=== PATIENT | female | born 1960 | race Caucasian/White ===

== ENCOUNTER 2021-04-04 04:22 | Emergency (ER) | payer OTHER, SELFPAY ==
[2021-04-04] VITALS (7 sets, daily range): BP systolic 145–188; BP diastolic 76–98; PULSE 45–55; RESP 13–21; TEMP 36.1; O2SAT 96–100
--- NOTE | ~2021-04-04 | XR_ITS ---
EXAMINATION: XR chest 2V EXAM DATE: 04/04/2021 05:06 INDICATION: Chest discomfort. TECHNIQUE: Frontal and lateral projections of the chest obtained and reviewed. Comparison is made to prior examination from 10/05/2013. FINDINGS: The lungs are clear. There are no pleural effusions. The cardiomediastinal silhouette is within normal limits. There is no pneumothorax suspected. The bones and soft tissues are unremarkab le. IMPRESSION: No acute cardiopulmonary findings. Reviewed, dictated and finalized at location A.
--- NOTE | 2021-04-04 04:42 | ECG_ITS ---
Measurements Intervals [place] Rate: 53 P: 42 [place]: 169 QRS: -44 QRSD: 157 T: 31 QT: 463 QTc: 438 Interpretive Statements SINUS BRADYCARDIA LEFT AXIS DEVIATION RIGHT BUNDLE BRANCH BLOCK CANNOT RULE OUT SEPTAL INFARCT, AGE INDETERMINATE MINIMAL Q WAVES- HIGH LATERAL LEADS BASELINE ARTIFACT- II, III, AVF, V1, V3-V6 ABNORMAL ECG Electronically Signed On 04-04-2021 7:50:52 CDT by Desmond Rodriguez D.O.
[2021-04-04 05:16] LABS: Basophils Percent Auto 0.5 % (0.2-1.2); Eosinophils Absolute Auto 0.1 K/mm3 (0-0.3); Eosinophils Percent Auto 1.5 % (0-4.4); Hematocrit 39.8 % (37.0-47.0); Hemoglobin 12.9 g/dL (12.0-15.0); Immature Granulocyte Absolute 0.02 K/mm3 (0.00-0.031); Immature Granulocyte Percent A 0.3 % (0-0.5); Lymphocytes Absolute Auto 1.59 K/mm3 (0.9-3.2); Lymphocytes Percent Auto 26.1 % (18.3-44.2); Mean Corpuscular HGB Conc 32.4 g/dl (32-36); Mean Corpuscular Hemoglobin 29.3 pg (26-34); Mean Corpuscular Volume 90.2 fl (80-100); Mean Platelet Volume 11.1 fl (7.4-10.4); Monocytes Absolute Auto 0.5 K/mm3 (0.1-0.6); Monocytes Percent Auto 8.5 % (2.6-8.5); Neutrophils Absolute Auto 3.8 K/mm3 (1.3-6.7); Neutrophils Percent Auto 63.1 % (45.5-73.1); Platelet Count Result 258 k/mm3 (150-375); Red Blood Count 4.41 M/mm3 (4.2-5.4); Red Cell Distribution Width 12.5 % (11.5-14.5); White Blood Count 6.1 K/mm3 (4.5-10.0)
[2021-04-04] MEDS: ASPIRIN 81 MG CHEWABLE TABLET 324 MG PO (05:20)
[2021-04-04 05:30] LABS: INR 0.8; Prothrombin Time 11.3 Seconds (11.1-14.7)
[2021-04-04 05:31] LABS: Partial Thromboplastin Time 25.7 SECONDS (22.3-36.8)
[2021-04-04 05:37] LABS: Anion Gap 10 mmol/L (8-16); Blood Urea Nitrogen 22 mg/dL (7-17); Calcium 9.3 mg/dL (8.4-10.2); Carbon Dioxide 23 mmol/L (22-30); Chloride 108 mmol/L (98-107); Estimated CRCL calculation 66 ml/min; Estimated Glomerular Filt Rate > 60; Glucose 114 mg/dL (65-110); Potassium 3.9 mmol/L (3.4-5.0); Sodium 141 mmol/L (137-145)
[2021-04-04 05:48] LABS: Troponin I < 0.012 ng/mL (0.000-0.034)
--- NOTE | 2021-04-04 06:16 | ED.GENADULT ---
HPI - General Adult General Chief complaint: Recheck/Abnormal Lab/Rx <Zhang Archibald MD - Last Filed: 04/04/21 06:42> Stated complaint: high bp <Zhang Archibald MD - Last Filed: 04/04/21 06:42> Time Seen by Provider: 04/04/21 05:18 <Zhang Archibald MD - Last Filed: 04/04/21 06:42> History of Present Illness HPI narrative: Patient is a 61-year-old female who presents the emergency department with chief complaint of elevated blood pressure. The patient states that she checked her blood pressure and it was running in the 180s she also felt a little bit of dizziness some tingling in her chest the patient states that she has not seen a primary care physician but had some earlier testing this week. The patient states that she feels a little better since she been in the emergency department and noticed that her blood pressure has come and trended down since she is arrived here the patient states that she had no nausea no vomiting denies any focal neurological deficit. <Zhang Archibald MD - Last Filed: 04/04/21 06:42> Related Data Allergies/adverse reactions: Allergies Allergy/AdvReac Type Severity Reaction Status Date / Time Penicillins Allergy Unknown RASH Verified 04/04/21 04:49 <Zhang Archibald MD - Last Filed: 04/04/21 06:42> Review of Systems Review of Systems: A 10 system review of systems was completed on the patient and is negative except for what is stated in the HPI. Nursing and ancillary documentation was reviewed. <Zhang Archibald MD - Last Filed: 04/04/21 06:42> [facility] Family History Family History: Family History Grandparent Diabetes mellitus Family history of lung cancer Family history of malignant neoplasm of breast Father Cerebrovascular accident <Zhang Archibald MD - Last Filed: 04/04/21 06:42> Social History Social History: Social History Smoking status: Never smoker <Zhang Archibald MD - Last Filed: 04/04/21 06:42> Exam Narrative: GENERAL: Well-appearing, well-nourished, and in no acute distress. HEAD: Normocephalic, atraumatic. EYES: PERRLA and EOMI. ENT: Nares clear, no rhinorrhea or epistaxis. Mucous membranes moist. NECK: Supple. CHEST: Clear to auscultation. No respiratory distress. HEART: Regular rate and rhythm. No murmur heard. Normal peripheral pulses. ABDOMEN: Soft, nontender, nondistended, normal active bowel sounds. EXTREMITIES: Normal range of motion. No edema. SKIN: Warm, dry, no rash. NEURO: No focal deficits. Alert and oriented x3. PSYCH: Normal mood and affect. <Zhang Archibald MD - Last Filed: 04/04/21 06:42> Course Reevaluation(s) Reevaluation #1: Currently patient is asymptomatic, agreed with the plan to start medication for hypertension and to follow-up with her family physician as soon as possible for further evaluation. Patient is telling me that she had Covid exposure 1 week ago and feels scratchy and congested throat and sinuses and would like to get the Covid tested prior to discharge. Patient also reported having chills yesterday <Carlos Eduardo Murillo MD - Last Filed: 04/04/21 08:54> Date: 04/04/21 <Carlos Eduardo Murillo MD - Last Filed: 04/04/21 08:54> Time: 08:47 <Carlos Eduardo Murillo MD - Last Filed: 04/04/21 08:54> Vital Signs Vital signs: Vital Signs Temperature 36.1 C L 04/04/21 04:32 Pulse Rate 55 L 04/04/21 04:32 Respiratory Rate 17 04/04/21 04:32 Blood Pressure 182/98 H 04/04/21 04:32 Pulse Oximetry 100 04/04/21 04:32 Temperature 36.1 C L 04/04/21 04:32 Pulse Rate 54 L 04/04/21 08:31 Respiratory Rate 19 04/04/21 08:31 Blood Pressure 167/82 H 04/04/21 08:31 Pulse Oximetry 100 04/04/21 08:31 <Zhang Archibald MD - Last Filed: 04/04/21 06:42> Vital Signs
[2021-04-04 08:03] LABS: Troponin I < 0.012 ng/mL (0.000-0.034)
[2021-04-05 18:39] LABS: SARS-CoV-2 RNA PCR Negative
== END 2021-04-04 09:10 | disposition home or self-care (01) ==
PROVIDERS: Emergency Medicine; Emergency Provider Emergency Medicine; PCP Internal Medicine
DX: R07.89 Other chest pain (principal); I10 Essential (primary) hypertension; Z20.822 Contact with and (suspected) exposure to COVID-19
CPT/HCPCS: 36415; 71046; 80048; 84484; 85025; 85610; 85730; 93005; 99284; A9270; C9803; U0003; U0005

== ENCOUNTER 2021-06-09 15:02 | Emergency (ER) | payer OTHER, SELFPAY ==
--- NOTE | ~2021-06-09 | XR_ITS ---
EXAMINATION: XR chest 2V EXAM DATE: 06/09/2021 15:49 INDICATION: Productive cough. TECHNIQUE: Frontal and lateral projections of the chest obtained and reviewed. Comparison is made to prior examination from 04/04/2021. FINDINGS: The lungs are clear. There are no pleural effusions. The cardiomediastinal silhouette is within normal limits. There is no pneumothorax suspected. Moderate-sized bilateral endplate osteoph ytes at mid thoracic levels. IMPRESSION: No acute cardiopulmonary findings. Reviewed, dictated and finalized at location B. & PRESIDENT
[2021-06-09 15:15] VITALS: BP 156/72; PULSE 57; RESP 16; TEMP 36.4; O2SAT 98
[2021-06-09 15:17] VITALS: BP 156/72; PULSE 57; RESP 16; TEMP 36.4; O2SAT 98
--- NOTE | 2021-06-09 15:20 | ED.URI ---
HPI - URI/Sore Throat General Chief Complaint: Upper Respiratory Infection Stated Complaint: sinus infection Time Seen by Provider: 06/09/21 15:20 Source: patient Mode of arrival: ambulatory Limitations: no limitations History of Present Illness HPI Narrative: Makenzie Ordoñez is a 61 yo female with a PMH of minimally treated hypertension [facility] of sinus congestion cough some cough red throat and general sinus congestion for last 8 to 10 days Related Data Allergies Allergy/AdvReac Type Severity Reaction Status Date / Time Penicillins Allergy Unknown RASH Verified 06/09/21 15:15 Review of Systems Review of Systems: CONSTITUTIONAL: Denies fever, chills, sweats. EYES: Denies visual changes, redness, discharge. ENT: Denies rhinorrhea, has congestion, has sore throat, otalgia. CARDIOVASCULAR: Denies chest pain, palpitations, edema. RESPIRATORY: Denies dyspnea, wheezing, some cough GASTROINTESTINAL: Denies abdominal pain, nausea, vomiting, diarrhea. GENITOURINARY: Denies dysuria, hematuria, abnormal discharge SKIN: Denies rash or itching. NEUROLOGIC: Denies numbness, or focal weakness. PSYCHIATRIC: Denies anxiety or depression. [facility] Past Medical History Medical History HTN (hypertension) Family History Family History Grandparent Diabetes mellitus Family history of lung cancer Family history of malignant neoplasm of breast Father Cerebrovascular accident Social History Social History (Updated 06/09/21 @ 15:33 by Alona Geller CNP) Smoking status: Never smoker Alcohol intake: current Comments At time of signature, I agree with nursing past medical, surgical, social and family history. There is no relevant family history pertinent to the presenting complaint. Patient diagnosed with hypertension but is not taking medication regularly Exam Narrative: GENERAL: This is a well-nourished, well-developed patient, in mild distress. HEAD: normocephalic, atraumatic. EYES: Sclera clear/white. Vision is grossly intact. EARS: External ears normal, auditory canals erythema and without drainage, TMs normal without perforation. Hearing grossly intact. NOSE: External nose normal with nasal discharge, nares without redness, has rhinorrhea. THROAT: Mucous membranes moist, posterior pharynx erythema with no exudate NECK: Neck supple, non-tender CARDIOVASCULAR: Regular rate and rhythm without murmurs, gallops, or rubs. RESPIRATORY: Clear to auscultation. Breath sounds equal bilaterally except for left lower lobe wheezing. GASTROINTESTINAL: Abdomen soft, non-tender, SKIN: warm, intact with no suspicious lesions or rash, good texture and turgor. NEURO: awake, alert, and oriented to person, place and time. There were no obvious focal neurologic abnormalities. Steady gait EXTREMITIES: Normal range of motion. BACK: Nontender without deformity Course Course Emergency Course: Patient comes to [facility] with 8 days of sinus symptoms and sore throat mild cough Chest x-ray shows no acute cardiopulmonary process Started on prednisone, albuterol, Tessalon Perles, zyrtec Vital Signs Vital signs: Vital Signs Temperature 97.5 F L 06/09/21 15:15 Pulse Rate 57 L 06/09/21 15:15 Respiratory Rate 16 06/09/21 15:15 Blood Pressure 156/72 H 06/09/21 15:15 Pulse Oximetry 98 06/09/21 15:15 Temperature 97.5 F L 06/09/21 15:17 Pulse Rate 57 L 06/09/21 15:17 Respiratory Rate 16 06/09/21 15:17 Blood Pressure 156/72 H 06/09/21 15:17 Pulse Oximetry 98 06/09/21 15:17 MDM - URI/Sore Throat Differential Diagnosis Differential diagnosis: Likely upper respiratory infection, sinusitis, viral infection, bronchitis, pharyngitis and other Critical Care Time Critical Care Time Critical Care Time: No Discharge Plan Discharge Clinical Impression: Sinusitis Qualifiers
== END 2021-06-09 16:09 | disposition home or self-care (01) ==
PROVIDERS: Emergency Provider Nurse Practitioner; PCP Internal Medicine
DX: J01.10 Acute frontal sinusitis, unspecified (principal); I10 Essential (primary) hypertension
CPT/HCPCS: 71046; 99213; G0463

== ENCOUNTER 2022-03-03 14:17 | Emergency (ER) | payer OTHER, SELFPAY ==
--- NOTE | 2022-03-03 14:19 | ED.EYEPROB ---
HPI - Eye Problem General Chief complaint: Eye Problems Stated complaint: Eye Pain Time Seen by Provider: 03/03/22 14:18 Source: patient Mode of arrival: ambulatory Limitations: no limitations History of Present Illness HPI Narrative: Ms. Brown is a 61-year-old female patient presenting to the clinic today with complaints of left eye pain and drainage x2 to 3 days. She reports she has lost her voice and had nasal congestion and postnasal drip for almost 1 week now. She denies any sinus pressure. She denies any fever or chills. She denies any known exposure to anyone with COVID, flu, or strep. Related Data Home Medications Medication Instructions Recorded Confirmed losartan 50 mg-hydrochlorothiazide 1 tablet PO DAILY 03/03/22 03/03/22 12.5 mg tablet Allergies Allergy/AdvReac Type Severity Reaction Status Date / Time Penicillins Allergy Unknown RASH Verified 03/03/22 14:19 Review of Systems Review of Systems: Pertinent positives per HPI. Patient denies any fever, chills, rash, headache, visual changes, dizziness, cough, runny nose, sore throat, shortness of breath, chest pain, palpitations, nausea, vomiting, diarrhea, constipation, abdominal pain, or any urinary issues. [facility] Past Medical History Medical History HTN (hypertension) Family History Family History Grandparent Diabetes mellitus Family history of lung cancer Family history of malignant neoplasm of breast Father Cerebrovascular accident Social History Social History Smoking status: Never smoker Alcohol intake: current Comments At the time of my signature, I reviewed and agree with the nursing past medical, surgical, social, and family history. There is no relevant family history pertinent to the patient complaint. Exam Narrative: General: Well-developed, overweight, in no apparent distress Head: Normocephalic, atraumatic Eyes: Pupils equally round and reactive to light bilaterally, EOM intact, right sclera and conjunctive clear, left sclera and conjunctive a injected with mild lid swelling and yellow mucopurulent discharge coming from the outer canthus, left lids normal Ears: TMs intact and clear, ear canals clear, no drainage, grossly hearing normal. Nose: Nares patent, clear nasal discharge, moderate inflammation, no sinus tenderness. Mouth: Oropharynx without lesions or masses, good dentition, MMM. Postnasal drip Neck: Supple, trachea midline, no enlargement of anterior or posterior cervical nodes, no thyroid masses or goiter palpable. Cardio: Regular rate and rhythm, s1 and s2 normal, no murmur appreciated. Resp: Clear to auscultation bilaterally anteriorly and posteriorly, no rhonchi, rales, wheezing or rubs Course Course Emergency Course: Portions of this record may have been created with voice recognition software. Level of Care: Express Care Visit Vital Signs Vital signs: Vital signs reviewed MDM - Eye Problem MDM Narrative Medical decision making narrative: At the time of visit patient is resting comfortably on the exam table. I suspect the patient has left acute conjunctivitis with viral upper respiratory infection and postnasal drip TobraDex prescription sent to the pharmacy and supportive measures were discussed with the patient for symptomatic treatment. Patient voiced understanding of discharge instructions and agrees to treatment plan Differential Diagnosis Differential diagnosis: Likely corneal abrasion, conjunctivitis and other (Upper respiratory infection, postnasal drip, sinusitis ) Discharge Plan Discharge Clinical Impression: Acute upper respiratory infection, PND (post-nasal drip) Acute conjunctivitis, left eye Qualifiers: Acute conjunctivitis type: unspecified Qualified Code(s): H10.32 - Unspecified acute
[2022-03-03 14:29] VITALS: BP 127/78; PULSE 63; RESP 18; TEMP 36.7; O2SAT 100
== END 2022-03-03 14:40 | disposition home or self-care (01) ==
PROVIDERS: Emergency Provider Nurse Practitioner Family; PCP Internal Medicine
DX: H10.32 Unspecified acute conjunctivitis, left eye (principal); J06.9 Acute upper respiratory infection, unspecified; R09.82 Postnasal drip; I10 Essential (primary) hypertension
CPT/HCPCS: 99213; G0463

== ENCOUNTER 2022-05-29 15:38 | Emergency (ER) | payer OTHER, SELFPAY ==
--- NOTE | ~2022-05-29 | XR_ITS ---
EXAM: XR ankle LT min 3V, XR foot LT min 3V DATE: 05/29/2022 16:01 (accession [id number]), 05/29/2022 16:02 (accession [id number]) HISTORY: TWISTING INJURY, BILATERAL MALLEOLUS SWELLING/PAIN . COMPARISON: None available. FINDINGS: Normal mineralization. No fracture or dislocation. No lytic or blastic lesion. Moderate de generative change at the tibiotalar joint and multiple midfoot joints. Old medial malleolus fracture fragment/ossified body. Prominent os trigonum. Achilles and plantar enthesopathy. Dorsal capsular and talonavicular capsular enthesopathy versus old fracture fragments. No erosion or periosteal change. Marked soft tissue swelling about the ankle. IMPRESSION: No acute osseous finding in the left ankle or foot. Reviewed, dictated and finalized at [facility] K. [employer] IMPRESSION: No acute osseous finding in the left ankle or foot.
[2022-05-29 15:43] VITALS: BP 137/67; PULSE 74; RESP 18; TEMP 36.6; O2SAT 99
[2022-05-29 18:17] VITALS: BP 135/71; PULSE 61; RESP 17; TEMP 37.2; O2SAT 100
--- NOTE | 2022-05-29 19:13 | ED.LOWEXIN ---
HPI - Extremity Injury (Lower) General Chief Complaint: Extremity Injury, Lower Stated Complaint: fell and twisted left ankle Time Seen by Provider: 05/29/22 18:41 History of Present Illness HPI Narrative: Patient is a 62-year-old female presenting with an ankle injury. Patient states that she was at work last night and she slipped as she was going down some stairs. States that she fell down 3 of them and twisted her left ankle. She did not strike her head. States that since that time she has had pain in her left ankle as well as significant swelling. States it is difficult to bear weight. She denies right ankle pain or injury. She denies further injuries. She denies chest pain, lightheadedness, shortness of breath, abdominal pain, vomiting. Related Data Home Medications Medication Instructions Recorded Confirmed losartan 50 mg-hydrochlorothiazide 1 tablet PO DAILY 03/03/22 03/03/22 12.5 mg tablet Allergies Allergy/AdvReac Type Severity Reaction Status Date / Time Penicillins Allergy Unknown RASH Verified 03/03/22 14:19 Review of Systems Review of Systems: All systems reviewed & are unremarkable except as noted in HPI and below PMFSH Past Medical History Medical History HTN (hypertension) Family History Family History Grandparent Diabetes mellitus Family history of lung cancer Family history of malignant neoplasm of breast Father Cerebrovascular accident Social History Social History Smoking status: Never smoker Alcohol intake: current Exam Narrative: GENERAL: Well-appearing, well-nourished, and in no acute distress. HEAD: Normocephalic, atraumatic. EYES: PERRLA and EOMI. ENT: Nares clear, no rhinorrhea or epistaxis. Mucous membranes moist. NECK: Supple. CHEST: No respiratory distress. HEART: Regular rate and rhythm. ABDOMEN: Soft, nondistended EXTREMITIES: left ankle with edema and tenderness over lateral malleolus, 2+ DP/PT pulses, brisk cap refill, ROM limited d/t pain; R ankle without abnormalities. SKIN: Warm, dry, no rash. NEURO: No focal deficits. Alert and oriented x3. PSYCH: Normal mood and affect. Course Vital Signs Vital signs: Vital Signs Temperature 97.9 F 05/29/22 15:43 Pulse Rate 74 05/29/22 15:43 Respiratory Rate 18 05/29/22 15:43 Blood Pressure 137/67 05/29/22 15:43 Pulse Oximetry 99 05/29/22 15:43 Temperature 98.9 F 05/29/22 18:17 Pulse Rate 61 05/29/22 18:17 Respiratory Rate 17 05/29/22 18:17 Blood Pressure 135/71 05/29/22 18:17 Pulse Oximetry 100 05/29/22 18:17 MDM - Extremity Injury (Lower) MDM Narrative Medical decision making narrative: Patient is a 62-year-old female presenting with a left ankle injury. Vitals within normal limits. Exam is remarkable for the above. She is neurovascularly intact. X-ray of the left foot and ankle were obtained which show no acute osseous abnormality. We will treat the patient with supportive care. Advised Aleve and Tylenol for pain control. Also recommended ice and elevation. Recommended follow-up with her PCP. We will also provide the number for orthopedics if her pain continues. Appropriate return precautions were given. Patient voiced understanding and is agreeable with plan. Discharged in stable condition. Critical Care Time Critical Care Time Critical Care Time: No Discharge Plan Discharge Clinical Impression: Ankle sprain and strain Patient Disposition: Home, Self-Care Condition: Stable Instructions: Antibiotic Form, Ankle Sprain (ED) Additional Instructions: Please alternate between Tylenol and Aleve for pain control. Please take 500 mg to 1000 mg of Tylenol and then 4 hours later take 500 mg of Aleve and continue to alternate between the two. Please apply ice and keep your foot
[2022-05-29] MEDS: NAPROXEN 500 MG TABLET PO (19:36)
== END 2022-05-29 19:59 | disposition home or self-care (01) ==
PROVIDERS: Emergency Provider Emergency Medicine; PCP Internal Medicine
DX: S93.402A Sprain of unspecified ligament of left ankle, initial encounter (principal); S96.912A Strain of unspecified muscle and tendon at ankle and foot level, left foot, initial encounter; I10 Essential (primary) hypertension; W10.9XXA Fall (on) (from) unspecified stairs and steps, initial encounter; X50.9XXA Other and unspecified overexertion or strenuous movements or postures, initial encounter
CPT/HCPCS: 73610; 73630; 99283; A9270

== ENCOUNTER 2022-06-03 09:09 | Emergency (ER) | payer OTHER, SELFPAY ==
--- NOTE | 2022-06-03 09:11 | ED.LOWEXIN ---
HPI - Extremity Injury (Lower) General Chief Complaint: Extremity Injury, Lower Stated Complaint: left ankle pain Time Seen by Provider: 06/03/22 09:11 Source: patient Mode of arrival: ambulatory Limitations: no limitations History of Present Illness HPI Narrative: Ms. Brown is a 62-year-old female patient presenting to clinic today with complaints of left ankle pain x6 days. She slipped on a step that had some wet leaves on it and she twisted her ankle. She went to the ER and had x-rays completed of the foot and ankle and they were negative. Still having a lot of pain and swelling when walking. Is scheduled to go back to work on Monday but does not feel as though she can perform her job duties due to the pain of her left ankle Related Data Home Medications Medication Instructions Recorded Confirmed losartan 50 mg-hydrochlorothiazide 1 tablet PO DAILY 03/03/22 03/03/22 12.5 mg tablet Allergies Allergy/AdvReac Type Severity Reaction Status Date / Time Penicillins Allergy Unknown RASH Verified 03/03/22 14:19 Review of Systems Review of Systems: Pertinent positives per HPI. Patient denies any fever, chills, rash, headache, visual changes, dizziness, cough, runny nose, sore throat, shortness of breath, chest pain, palpitations, nausea, vomiting, diarrhea, constipation, abdominal pain, or any urinary issues. PMFSH Past Medical History Medical History HTN (hypertension) Family History Family History Grandparent Diabetes mellitus Family history of lung cancer Family history of malignant neoplasm of breast Father Cerebrovascular accident Social History Social History Smoking status: Never smoker Alcohol intake: current Comments At the time of my signature, I reviewed and agree with the nursing past medical, surgical, social, and family history. There is no relevant family history pertinent to the patient complaint. Exam Narrative: General: Well-developed, well nourished, in no apparent distress Head: Normocephalic, atraumatic. Cardio: Regular rate and rhythm, s1 and s2 normal, no murmur appreciated. Resp: Clear to auscultation bilaterally, no rhonchi, rales, wheezing or rubs. Musculoskeletal: No deformity, diffuse swelling to the left ankle and foot with some old bruising noted, tender to palpation around the entire left ankle and dorsal foot, has moderate strength with dorsal flexion and plantar flexion, range of motion limited due to pain and swelling, peripheral pulse strong, no cyanosis, limping gait and station- walking with a single-point cane Course Course Emergency Course: Portions of this record may have been created with voice recognition software. Level of Care: Express Care Visit Vital Signs Vital signs: Vital Signs Temperature 36.4 C L 06/03/22 09:20 Pulse Rate 54 L 06/03/22 09:20 Respiratory Rate 16 06/03/22 09:20 Blood Pressure 184/79 H 06/03/22 09:20 Pulse Oximetry 99 06/03/22 09:20 Oxygen Delivery Room Air 06/03/22 09:20 Temperature 36.4 C L 06/03/22 09:22 Pulse Rate 54 L 06/03/22 09:22 Respiratory Rate 16 06/03/22 09:22 Blood Pressure 184/79 H 06/03/22 09:22 Pulse Oximetry 99 06/03/22 09:22 Oxygen Delivery Room Air 06/03/22 09:22 Vital signs reviewed MDM - Extremity Injury (Lower) MDM Narrative Medical decision making narrative: at the time of visit patient is resting comfortably on the exam chair. I suspect the patient has moderate to severe ankle sprain. Work note was given to be off until cleared by Ortho or PCP. Patient will possibly need an MRI if her symptoms persist. Supportive measures were discussed with the patient she voiced understanding of discharge instructions and agrees to treatment plan. Differential Diagnosis Different
[2022-06-03 09:20] VITALS: BP 184/79; PULSE 54; RESP 16; TEMP 36.4; O2SAT 99
[2022-06-03 09:22] VITALS: BP 184/79; PULSE 54; RESP 16; TEMP 36.4; O2SAT 99
== END 2022-06-03 09:42 | disposition home or self-care (01) ==
PROVIDERS: Emergency Provider Nurse Practitioner Family; PCP Internal Medicine
DX: S93.492A Sprain of other ligament of left ankle, initial encounter (principal); I10 Essential (primary) hypertension; W10.8XXA Fall (on) (from) other stairs and steps, initial encounter
CPT/HCPCS: 99212; G0463

== ENCOUNTER 2022-07-05 14:51 | Emergency (ER) | payer OTHER, SELFPAY ==
--- NOTE | ~2022-07-05 | XR_ITS ---
EXAM: XR finger 1st RT min 2V DATE: 07/05/2022 15:10 HISTORY: pain base right thumb etiology unknown . COMPARISON: None available. FINDINGS: Normal mineralization. No fracture or dislocation. No lytic or blastic lesion. Scattered d egenerative changes. No erosion or periosteal change. Soft tissues within normal limits. IMPRESSION: No acute osseous finding in the right thumb. Reviewed, dictated and finalized at location K. IAGE COUNSELOR
--- NOTE | 2022-07-05 14:53 | ED.URI ---
HPI - URI/Sore Throat General Chief Complaint: Extremity Injury, Upper Stated Complaint: right thumb pain Related Data Home Medications Medication Instructions Recorded Confirmed losartan 50 mg-hydrochlorothiazide 1 tablet PO DAILY 03/03/22 06/22/22 12.5 mg tablet Allergies Allergy/AdvReac Type Severity Reaction Status Date / Time Penicillins Allergy Unknown RASH Verified 06/22/22 11:55 [facility] Past Medical History Medical History (Updated 06/22/22 @ 11:58 by Natalia Gutiérrez) History of ankle fracture (~1988) Was in cast for 3 months HTN (hypertension) Family History Family History Grandparent Diabetes mellitus Family history of lung cancer Family history of malignant neoplasm of breast Father Cerebrovascular accident Social History Social History (Updated 06/22/22 @ 11:56 by Natalia Gutiérrez) Smoking status: Never smoker Alcohol intake: current Lack of Transportation: No Lack of Food: Never True Current Housing: I Have Housing Concerned About Future Housing: No Difficulty Paying Gas/Electric Bills: No Difficulty Paying for Meds: No Currently Unemployed: No Education: High School Diploma/GED Difficulty w/ Childcare or Family Care: No Discharge Plan Discharge Prescriptions: No Action losartan-hydrochlorothiazide 50-12.5 mg tablet 1 tablet PO DAILY Follow-up/Referrals: Gautam,Angle Patten MD [Primary Care Provider] -
[2022-07-05 15:00] VITALS: BP 171/90; PULSE 71; RESP 16; TEMP 36.6; O2SAT 99
--- NOTE | 2022-07-05 15:00 | ED.UPPEXIN ---
HPI - Extremity Injury (Upper) General Chief Complaint: Extremity Injury, Upper Stated Complaint: right thumb pain Time Seen by Provider: 07/05/22 15:11 Source: patient, RN notes reviewed and old records reviewed Mode of arrival: ambulatory Limitations: no limitations History of Present Illness HPI narrative: 62-year-old female presents to the [facility] with right thumb pain, IP Joint. Decreased ROM of the finger with no known injury. No redness or swelling noted. Sensation intact distal finger. With capillary refill under 2 seconds Related Data Home Medications Medication Instructions Recorded Confirmed losartan 50 mg-hydrochlorothiazide 1 tablet PO DAILY 03/03/22 07/05/22 12.5 mg tablet Allergies Allergy/AdvReac Type Severity Reaction Status Date / Time Penicillins Allergy Unknown RASH Verified 06/22/22 11:55 Review of Systems Review of Systems: All systems reviewed & are unremarkable except as noted in HPI and below Constitutional: Constitutional: Reports no additional constitutional complaints Eyes: Eyes: Reports no additional eye complaints ENT: Reports system reviewed and no additional complaints, except as documented Cardiovascular: Cardiovascular: Reports no additional cardiovascular complaints, Denies chest pain and Denies dyspnea Respiratory: Respiratory: Reports no additional respiratory complaints, Denies chest congestion, Denies cough and Denies dyspnea Gastrointestinal: Gastrointestinal: Reports no additional gastrointestinal complaints, Denies abdominal pain, Denies nausea and Denies vomiting Musculoskeletal: Musculoskeletal: Reports as per HPI Integumentary/Breasts: Skin/Breast: Reports system reviewed and no additional complaints, except as docu Neurologic: Reports system reviewed and no additional complaints, except as documented Psychiatric: Psychiatric: Reports no additional psychiatric complaints Allergic/Immunologic: Allergic/Immunologic: Reports no additional allergic/immunologic complaints [facility] Past Medical History Medical History History of ankle fracture (~1988) Was in cast for 3 months HTN (hypertension) Family History Family History Grandparent Diabetes mellitus Family history of lung cancer Family history of malignant neoplasm of breast Father Cerebrovascular accident Social History Social History Smoking status: Never smoker Alcohol intake: current Lack of Transportation: No Lack of Food: Never True Current Housing: I Have Housing Concerned About Future Housing: No Difficulty Paying Gas/Electric Bills: No Difficulty Paying for Meds: No Currently Unemployed: No Education: High School Diploma/GED Difficulty w/ Childcare or Family Care: No Comments At the time of my signature, I reviewed and agree with the nursing past medical, surgical, social, and family history. There is no relevant family history pertinent to the patient complaint. Exam Const: General: cooperative, healthy appearing, comfortable, no acute distress, well developed, alert and well nourished Nutritional Appearance: well nourished Orientation/consciousness: patient oriented x3 Limitations: no limitations HENMT: Head: normal to inspection Ears: hearing grossly normal bilaterally and external ears normal Face/Nose/Sinus: Normal external nose present, Normal nares present, Normal nasal mucous membranes and turbinates present and normal facial exam Face and sinus: normal facial exam Mouth: Yes Normal oral and palatal mucosa present, Yes lip normal and Yes moist mucous membranes Throat: posterior oropharynx normal and uvula midline Eyes: General: appearance normal, both eyes and all related structures Alignment and Position: alignment normal Periorbital: periorbital findings normal Conjunctivae: conjunct
[2022-07-05 15:40] VITALS: BP 125/67
== END 2022-07-05 15:40 | disposition home or self-care (01) ==
PROVIDERS: Emergency Provider Nurse Practitioner; PCP Internal Medicine
DX: M79.644 Pain in right finger(s) (principal); I10 Essential (primary) hypertension
CPT/HCPCS: 73140; 99213; G0463

== ENCOUNTER 2022-07-14 15:11 | Emergency (ER) | payer OTHER, SELFPAY ==
[2022-07-14 15:22] VITALS: BP 152/72; PULSE 61; RESP 18; TEMP 36.7; O2SAT 100
--- NOTE | 2022-07-14 15:57 | ED.EYEPROB ---
HPI - Eye Problem General Chief complaint: Eye Problems Stated complaint: red left eye; sore eye Time Seen by Provider: 07/14/22 15:57 Source: patient, RN notes reviewed and old records reviewed Mode of arrival: ambulatory Limitations: no limitations History of Present Illness HPI Narrative: 62-year-old female presents to the [facility] with redness and pain to the left eye that happened just prior to arrival. No treatment to arrival. Unsure of any trauma or scratching her eye. Related Data Home Medications Medication Instructions Recorded Confirmed losartan 50 mg-hydrochlorothiazide 1 tablet PO DAILY 03/03/22 07/14/22 12.5 mg tablet Allergies Allergy/AdvReac Type Severity Reaction Status Date / Time Penicillins Allergy Unknown RASH Verified 07/14/22 15:58 Review of Systems Review of Systems: All systems reviewed & are unremarkable except as noted in HPI and below Constitutional: Constitutional: Reports no additional constitutional complaints Eyes: Eyes: Reports as per HPI, Denies change in vision, Reports irritation, Reports eye pain, Denies photophobia, Denies spots in vision and Denies tunnel vision ENT: Reports system reviewed and no additional complaints, except as documented Cardiovascular: Cardiovascular: Reports no additional cardiovascular complaints, Denies chest pain and Denies dyspnea Respiratory: Respiratory: Reports no additional respiratory complaints, Denies chest congestion, Denies cough and Denies dyspnea Gastrointestinal: Gastrointestinal: Reports no additional gastrointestinal complaints, Denies abdominal pain, Denies nausea and Denies vomiting Musculoskeletal: Musculoskeletal: Reports no additional musculoskeletal complaints Integumentary/Breasts: Skin/Breast: Reports system reviewed and no additional complaints, except as docu Neurologic: Reports system reviewed and no additional complaints, except as documented Psychiatric: Psychiatric: Reports no additional psychiatric complaints Allergic/Immunologic: Allergic/Immunologic: Reports no additional allergic/immunologic complaints [facility] Past Medical History Medical History History of ankle fracture (~1988) Was in cast for 3 months HTN (hypertension) Family History Family History Grandparent Diabetes mellitus Family history of lung cancer Family history of malignant neoplasm of breast Father Cerebrovascular accident Social History Social History Smoking status: Never smoker Alcohol intake: current Lack of Transportation: No Lack of Food: Never True Current Housing: I Have Housing Concerned About Future Housing: No Difficulty Paying Gas/Electric Bills: No Difficulty Paying for Meds: No Currently Unemployed: No Education: High School Diploma/GED Difficulty w/ Childcare or Family Care: No Comments At the time of my signature, I reviewed and agree with the nursing past medical, surgical, social, and family history. There is no relevant family history pertinent to the patient complaint. Exam Const: General: cooperative, healthy appearing, comfortable, no acute distress, well developed, alert and well nourished Nutritional Appearance: well nourished and obese Orientation/consciousness: patient oriented x3 Limitations: no limitations HENMT: Head: normal to inspection Ears: hearing grossly normal bilaterally and external ears normal Face/Nose/Sinus: Normal external nose present, Normal nares present, Normal nasal mucous membranes and turbinates present and normal facial exam Face and sinus: normal facial exam Mouth: Yes Normal oral and palatal mucosa present, Yes lip normal and Yes moist mucous membranes Throat: posterior oropharynx normal and uvula midline Eyes: General: appearance normal, both eyes and all related structures Visual Krishna
== END 2022-07-14 16:06 | disposition home or self-care (01) ==
PROVIDERS: Emergency Provider Nurse Practitioner; PCP Internal Medicine
DX: S05.02XA Injury of conjunctiva and corneal abrasion without foreign body, left eye, initial encounter (principal); X58.XXXA Exposure to other specified factors, initial encounter; H11.32 Conjunctival hemorrhage, left eye; I10 Essential (primary) hypertension
CPT/HCPCS: 99213; A9270; G0463

== ENCOUNTER → 2022-08-11 12:32 | Outpatient (CLI) | payer OTHER, SELFPAY ==
--- NOTE | ~2022-08-11 | MM_ITS ---
EXAMINATION: MM screening [facility] BI w chanel HISTORY: Screening mammogram TECHNIQUE: Craniocaudal and mediolateral oblique 3-D tomosynthesis images were obtained and synthetic 2-D images were generated. CAD analysis was submitted and interpreted. COMPARISON: 02/16/2017, 05/08/2015, 08/08/2013 BREAST PARENCHYMAL COMPOSITION: There are scattered areas of fibroglandular density. FINDINGS: No suspicious mass, calcification, or architectural distortion are identified in either brad ast to suggest malignancy. There has been no suspicious interval change. IMPRESSION: 1. No mammographic evidence of malignancy. 2. Recommend routine screening mammography in one year. BI-RADS Category 1: Negative Reviewed, dictated and finalized at location A. ON WEAVER
== END ==
PROVIDERS: PCP Internal Medicine; Visit Provider Internal Medicine
DX: Z12.31 Encounter for screening mammogram for malignant neoplasm of breast (principal)
CPT/HCPCS: 77063; 77067

== ENCOUNTER 2022-08-21 21:51 | Emergency (ER) | payer OTHER, SELFPAY ==
--- NOTE | ~2022-08-21 | CT_ITS ---
EXAMINATION: CT abdomen pelvis w con DATE: 08/22/2022 00:26 INDICATION: Right upper quadrant and epigastric abdominal pain. TECHNIQUE: Computed tomography (CT) of the abdomen and pelvis was performed with 100 mL Omnipaque 350 intravenous contrast. Automated exposure control and iterative reconstruction technique were employe d. The dose-length product was 1154.58 mGy-cm. COMPARISON: CT abdomen and pelvis 07/03/2006 FINDINGS: The visualized portions of the lung bases demonstrate mild atelectasis. No pleural effusion . The heart size is normal. No pericardial effusion. There is a 2.0 cm mass right hepatic lobe with i nterval decrease in size, likely benign. There is a 7 mm hyperenhancing mass in right hepatic lobe, l ikely a hemangioma or focal nodular hyperplasia. The gallbladder, spleen, pancreas, adrenal glands, a nd kidneys are normal. There is diverticulosis of the colon without evidence of diverticulitis. The a ppendix is normal. There are no dilated loops of bowel. There are no pathologically enlarged lymph no bautista. There is no free intraperitoneal fluid. There is prominent fat in right inguinal canal that may be a hernia. There is severe lumbar spondylosis. IMPRESSION: 1. No etiology for the patient's symptoms. Reviewed, dictated and finalized at location A. ION PATTERNMAKER
[2022-08-21 21:52] VITALS: BP 210/85; PULSE 62; RESP 18; TEMP 36.7; O2SAT 100
--- NOTE | 2022-08-21 22:29 | ED.ABDPAIN ---
HPI - Abdominal Pain General Chief Complaint: Abdominal Pain Stated Complaint: Abd pain Time Seen by Provider: 08/21/22 22:09 History of Present Illness HPI narrative: 62-year-old female presenting to the emergency department for evaluation of upper abdominal pain and bloating. Patient states just after eating dinner she was resting when she felt that she was having increased abdominal cramping. Patient states this made her concerned so she wanted to be evaluated. Patient states when the pain was bad that she did have some associated shortness of breath. Patient denies any current chest pain or shortness of breath. Patient denies any prior history of abdominal surgeries other than a surgery as an infant that she is unsure about surgery that was. Patient does report having a work-up of her gallbladder by physicians at [place] approximately 3 years ago. No acute abnormalities were noted at that time. Patient was thought to have some polyps of her gallbladder but no other pathology was noted. Related Data Home Medications Medication Instructions Recorded Confirmed losartan 50 mg-hydrochlorothiazide 1 tablet PO DAILY 03/03/22 08/19/22 12.5 mg tablet Allergies Allergy/AdvReac Type Severity Reaction Status Date / Time Penicillins Allergy Unknown RASH Verified 08/21/22 21:57 Review of Systems Review of Systems: CONSTITUTIONAL: Denies fever, chills, or sweats. EYES: Denies visual changes, redness, or discharge. ENT: Denies rhinorrhea, congestion, sore throat, or otalgia. CARDIOVASCULAR: Denies chest pain, palpitations, or edema. RESPIRATORY: Denies cough or dyspnea. GASTROINTESTINAL: See HPI GENITOURINARY: Denies dysuria or hematuria. SKIN: Denies rash or itching. MUSCULOSKELETAL: Denies back pain, joint pain, or myalgia. NEUROLOGIC: Denies headache, numbness, or weakness. [facility] Past Medical History Medical History History of ankle fracture (~1988) Was in cast for 3 months HTN (hypertension) Family History Family History Grandparent Diabetes mellitus Family history of lung cancer Family history of malignant neoplasm of breast Father Cerebrovascular accident Social History Social History Smoking status: Never smoker Alcohol intake: current Lack of Transportation: No Lack of Food: Never True Current Housing: I Have Housing Concerned About Future Housing: No Difficulty Paying Gas/Electric Bills: No Difficulty Paying for Meds: No Currently Unemployed: No Education: High School Diploma/GED Difficulty w/ Childcare or Family Care: No Exam Narrative: APPEARANCE: Well appearing, no pain, no distress, well-nourished. HEAD: normocephalic, atraumatic. EYES: PERRLA/EOMI, conjunctivae clear. NOSE: Normal no drainage NECK: Supple. No adenopathy, no masses. RESPIRATORY: Airway patent, respirations nonlabored. Clear to auscultation bilaterally, no rales, rhonchi, wheezing. CARDIOVASCULAR: Regular rate and rhythm without murmurs rubs or gallops. ABDOMINAL: Complains of pain of upper abdomen but no significant reproducible tenderness to palpation. Nonsurgical abdomen. MUSCULOSKELETAL: Moves all extremities. Strength/ROM intact, No edema, No calf tenderness. NEURO: Alert. Cranial nerves II through XII intact. SKIN: Warm, dry. Normal Color Course Course Emergency Course: Patient declined any medications for pain control. Patient was ordered IV fluids. CT abdomen pelvis was ordered to evaluate for possibility of cholecystitis. Differential diagnosis also includes colitis, diverticulitis, pancreatitis. Patient was afebrile with no leukocytosis. Patient's transaminase were mildly elevated. Alk phos was elevated at 204. Patient's T bili is not elevated. No evidence of cholecystitis on CT scan. On reexamination patient has complain
[2022-08-21 22:45] LABS: Basophils Percent Auto 0.6 % (0.2-1.2); Eosinophils Absolute Auto 0.1 K/mm3 (0-0.3); Eosinophils Percent Auto 1.8 % (0-4.4); Hematocrit 37.9 % (37.0-47.0); Hemoglobin 12.3 g/dL (12.0-15.0); Immature Granulocyte Absolute 0.02 K/mm3 (0.00-0.031); Immature Granulocyte Percent A 0.3 % (0-0.5); Lymphocytes Absolute Auto 1.88 K/mm3 (0.9-3.2); Lymphocytes Percent Auto 28.5 % (18.3-44.2); Mean Corpuscular HGB Conc 32.5 g/dl (32-36); Mean Corpuscular Hemoglobin 28.4 pg (26-34); Mean Corpuscular Volume 87.5 fl (80-100); Mean Platelet Volume 10.3 fl (7.4-10.4); Monocytes Absolute Auto 0.5 K/mm3 (0.1-0.6); Neutrophils Percent Auto 60.8 % (45.5-73.1); Platelet Count Result 288 k/mm3 (150-375); Red Blood Count 4.33 M/mm3 (4.2-5.4); Red Cell Distribution Width 12.6 % (11.5-14.5); White Blood Count 6.6 K/mm3 (4.5-10.0)
[2022-08-21] MEDS: SODIUM CHLORIDE 0.9% IV 1,000 ML 999 ML IV CONT (22:45)
[2022-08-21 22:46] LABS: Appearance Urine Clear (Clear); Bilirubin Urine Negative (Negative); Blood Urine Negative (Negative); Color Urine Yellow (Yellow); Glucose Urine UA Negative (Negative); Ketones Urine Negative (Negative); Leukocyte Esterase Ur 1+ LEU/UL (Negative); Nitrate Urine Positive (Negative); Protein Urine Negative (Negative); Urobilinogen Urine 0.2 mg/dL (<2.0)
[2022-08-21 22:59] LABS: Bacteria Urine Trace /hpf; Mucus Urine Rare /lpf; Squamous Epithelial Cell Urine Occasional /hpf (Few); WBC Urine 21-30 /hpf
[2022-08-21 23:00] LABS: Alanine Aminotransferase 69 U/L (6-35); Albumin Level 3.7 g/dL (3.5-5.1); Alkaline Phosphatase 204 U/L (38-126); Anion Gap 7 mmol/L (8-16); Aspartate Amino Transferase 70 U/L (14-36); Bilirubin,Total 0.4 mg/dL (0.2-1.3); Blood Urea Nitrogen 18 mg/dL (7-17); Calcium 8.7 mg/dL (8.4-10.2); Carbon Dioxide 26 mmol/L (22-30); Chloride 108 mmol/L (98-107); Estimated CRCL calculation 54 ml/min; Estimated Glomerular Filt Rate 56; Glucose 115 mg/dL (65-110); INR 0.9; Lipase 78 U/L (23-300); Partial Thromboplastin Time 26.1 SECONDS (22.3-36.8); Potassium 4.1 mmol/L (3.4-5.0); Prothrombin Time 12.2 Seconds (11.1-14.7); Sodium 141 mmol/L (137-145)
[2022-08-21 23:17] LABS: Add Urine Microscopic? YES
[2022-08-21 23:28] VITALS: BP 125/76; PULSE 78; RESP 17; O2SAT 99
[2022-08-22] MEDS: levoFLOXacin 750 MG TABLET PO (01:24)
[2022-08-22 01:35] VITALS: BP 141/78; PULSE 75; RESP 16; O2SAT 100
== END 2022-08-22 01:35 | disposition home or self-care (01) ==
PROVIDERS: Emergency Provider Emergency Medicine; PCP Internal Medicine
DX: N39.0 Urinary tract infection, site not specified (principal); R14.0 Abdominal distension (gaseous); R16.0 Hepatomegaly, not elsewhere classified; I10 Essential (primary) hypertension
CPT/HCPCS: 36415; 74177; 80053; 81001; 83690; 85025; 85610; 85730; 87077; 87086; 87186; 96360; 99284; A9270; J7030; Q9967

== ENCOUNTER → 2022-09-29 11:20 | Outpatient (CLI) | payer OTHER, SELFPAY ==
--- NOTE | ~2022-09-29 | DEXA_ITS ---
Bone Density Report Name: JOSUÉ SILVEIRA Age: 62 Sex: Female Ethnicity: White Date of : 1960 Indication: postmenopausal; screening for osteoporosis; height loss; Referring Provider: TOR, JENNY Cook Study: Bone densitometry was performed. Exam Date: September 29, 2022 Accession number: [id number] Bone Density: Region BMD T-score Z-score Classification AP Spine (L1-L4) 1.013 -0.3 1.4 Normal Femoral Neck (Left) 0.809 -0.4 1.1 Normal Total Hip (Left) 1.111 1.4 2.6 Normal Femoral Neck (Right) 0.898 0.4 1.9 Normal Total Hip (Right) 1.125 1.5 2.7 Normal Total Hip Mean 1.118 1.5 2.7 Normal World Health Organization criteria for BMD impression classify patients as: Normal (T-score at or above -1.0), Osteopenia (T-score between -1.0 and -2.5), or Osteoporosis (T-score at or below -2.5). 10-year Fracture Risk: FRAX not reported because: All T-scores for Spine Total, Hip Total, Femoral Neck at or above -1.0 Previous Exams: Region Exam Age BMD T-score BMD Change BMD Change Date g/cm2 vs Baseline vs Previous AP Spine(L1-L4) 09/29/2022 62 1.013 -0.3 0.015 0.022 05/08/2015 55 0.991 -0.5 -0.006 -0.006 01/19/2011 50 0.998 -0.4 Total Hip(Left) 09/29/2022 62 1.111 1.4 -0.013 -0.055 05/08/2015 55 1.166 1.8 0.042* 0.042* 01/19/2011 50 1.124 1.5 Total Hip(Right) 09/29/2022 62 1.125 1.5 0.001 -0.085 05/08/2015 55 1.210 2.2 0.086* 0.086* 01/19/2011 50 1.124 1.5 *Denotes significance at 95% confidence level, LSC for AP Spine = 0.022 g/cm2, LSC for Total Hip = 0.027 g/cm2 Clinical Information Provided by Patient: Patient maximum height was 64.0 Menopause Age: 38 No regular weight bearing exercise Drinks caffeinated beverages Onset of menses at age 12 Number of children 1 Impression: The patient has normal bone mass. No significant bone loss was observed. Discussion: BONE DENSITY IS ABOVE THE MINIMUM DESIRABLE LEVEL AT ALL SKELETAL SITES TESTED. This patient?s bone mineral density is above the minimum desirable level (T-score -1.0 or better) at all sites measured. The patient should follow a healthful lifestyle (good nutrition with adequate calcium and vitamin D, and appropriate weight-bearing exercise). Follow-Up: Consider repeating this study in 5 years or sooner if there is some new clinical in
== END ==
PROVIDERS: PCP Internal Medicine; Visit Provider Nurse Practitioner
DX: Z13.820 Encounter for screening for osteoporosis (principal); Z78.0 Asymptomatic menopausal state
CPT/HCPCS: 77080

== ENCOUNTER 2022-10-05 10:14 | Emergency (ER) | payer OTHER, SELFPAY ==
--- NOTE | 2022-10-05 10:20 | ED.URI ---
HPI - URI/Sore Throat General Chief Complaint: Upper Respiratory Infection Stated Complaint: Fever/Sinus Time Seen by Provider: 10/05/22 10:30 Source: patient Mode of arrival: ambulatory Limitations: no limitations History of Present Illness HPI Narrative: Makenzie is a 62-year-old female patient presenting to the clinic today with complaints of fever and sinus congestion times 2-3 days. Patient states her highest temperature was a 102.3? F MD elicited complaint: fever, cough and nasal congestion Related Data Home Medications Medication Instructions Recorded Confirmed losartan 50 mg-hydrochlorothiazide 1 tablet PO DAILY 03/03/22 09/19/22 12.5 mg tablet Allergies Allergy/AdvReac Type Severity Reaction Status Date / Time Penicillins Allergy Unknown RASH Verified 08/21/22 21:57 Review of Systems Review of Systems: Pertinent positives per HPI. Patient denies any fever, chills, rash, headache, visual changes, dizziness, cough, shortness of breath, chest pain, palpitations, nausea, vomiting, diarrhea, constipation, abdominal pain, or any urinary issues. PMFSH Past Medical History Medical History History of ankle fracture (~1988) Was in cast for 3 months HTN (hypertension) Family History Family History Grandparent Diabetes mellitus Family history of lung cancer Family history of malignant neoplasm of breast Father Cerebrovascular accident Social History Social History Smoking status: Never smoker Alcohol intake: current Lack of Transportation: No Lack of Food: Never True Current Housing: I Have Housing Concerned About Future Housing: No Difficulty Paying Gas/Electric Bills: No Difficulty Paying for Meds: No Currently Unemployed: No Education: High School Diploma/GED Difficulty w/ Childcare or Family Care: No Comments At the time of my signature, I reviewed and agree with the nursing past medical, surgical, social, and family history. There is no relevant family history pertinent to the patient complaint. Exam Narrative: General: Well-developed, well nourished, in no apparent distress Head: Normocephalic, atraumatic Eyes: Pupils equally round and reactive to light bilaterally, EOM intact, sclera and conjunctive clear, no discharge, lids normal Ears: TMs intact and clear, ear canals clear, no drainage, grossly hearing normal. Nose: Nares patent, no discharge, no inflammation, no sinus tenderness. Mouth: Oral pharynx without lesions or masses, good dentition, MMM. Neck: Supple, trachea midline, no enlargement of anterior or posterior cervical nodes, no thyroid masses or goiter palpable. Cardio: Regular rate and rhythm, s1 and s2 normal, no murmur appreciated. Resp: Clear to auscultation bilaterally, no rhonchi, rales, wheezing or rubs Course Course Emergency Course: Portions of this record may have been created with voice recognition software. Level of Care: Express Care Visit Vital Signs Vital signs: Vital Signs Temperature 37.2 C 10/05/22 10:27 Pulse Rate 69 10/05/22 10:27 Respiratory Rate 16 10/05/22 10:27 Blood Pressure 117/75 10/05/22 10:27 Pulse Oximetry 98 10/05/22 10:27 Oxygen Delivery Room Air 10/05/22 10:27 Temperature 37.2 C 10/05/22 10:27 Pulse Rate 69 10/05/22 10:27 Respiratory Rate 16 10/05/22 10:27 Blood Pressure 117/75 10/05/22 10:27 Pulse Oximetry 98 10/05/22 10:27 Oxygen Delivery Room Air 10/05/22 10:27 Vital signs reviewed MDM - URI/Sore Throat Differential Diagnosis Differential diagnosis: Likely sinusitis, viral infection, influenza and pharyngitis Discharge Plan Discharge Clinical Impression: COVID-19 Patient Disposition: Home, Self-Care Condition: Stable Instructions: Antibiotic Form Additional Instructions: COVID t
[2022-10-05 10:27] VITALS: BP 117/75; PULSE 69; RESP 16; TEMP 37.2; O2SAT 98
== END 2022-10-05 10:55 | disposition home or self-care (01) ==
PROVIDERS: Emergency Provider Nurse Practitioner Family; PCP Internal Medicine
DX: U07.1 COVID-19 (principal); I10 Essential (primary) hypertension
CPT/HCPCS: 87426; 99212; C9803; G0463

== ENCOUNTER 2022-11-22 08:07 | Outpatient (CLI) | payer OTHER, SELFPAY ==
--- NOTE | ~2022-11-22 | MR_ITS ---
EXAMINATION: MR foot LT wo con DATE: 11/22/2022 09:05 INDICATION: Left foot pain post fall TECHNIQUE: Magnetic resonance imaging (MRI) of the left fore/mid foot was performed without intraveno us contrast. Sequences included sagittal T1-weighted FSE, sagittal fluid sensitive FSE STIR, coronal PD-weighted FS FSE, coronal T1-weighted FSE, axial PD-weighted FS FSE, and axial PD-weighted FSE. COMPARISON: Radiographs dated 05/29/2022 FINDINGS: Suggestion of pes planus although this better assessed with weightbearing radiographs. Alignment is o therwise normal. No fracture. Polyarticular osteoarthritis, moderate severity at the second and third tarsal metatarsal joints, the first metatarsophalangeal joint and at the second and third distal int erphalangeal joints. Mild osteoarthritis at many of the remaining joints in the left foot. Small enth esophytes at the dorsal aspect of many of the tarsal bones. Thickening and mild increased signal cons istent with scarring related to chronic sprain of the superomedial component of the spring ligament c omplex. There is mild cystlike and edema-like marrow signal change at the juxtaposed nonarticular aminah faces of the anterior process of the calcaneus and the lateral process of the talus which can be seen in the setting of lateral hindfoot impingement. Lisfranc ligament complex and the collateral ligamen t complex at the metatarsophalangeal and interphalangeal joints are normal. Visualized portions of th e flexor and extensor tendons are normal. Intrinsic musculature at the left foot is normal. Physiolog ic amount fluid in the joint spaces. No tenosynovitis, bursitis or other abnormal fluid collections. IMPRESSION: 1. 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 2. Likely scarring related to chronic sprain of the superomedial component of the spring ligament com plex with likely pes planus and edema pattern in the hindfoot suggestive of lateral hindfoot impingem ent. Reviewed, dictated and finalized at location L. IMPRESSION: 1. 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 2. Likely scarring related to chronic sprain of the superomedial component of t he spring ligament complex with likely pes planus and edema pattern in the hind foot suggestive of lateral hindfoot impingement.
== END 2022-11-22 08:08 ==
PROVIDERS: PCP Orthopaedic Surgery; Visit Provider Orthopaedic Surgery
DX: M19.071 Primary osteoarthritis, right ankle and foot (principal)
CPT/HCPCS: 73718

== ENCOUNTER 2023-07-08 16:52 | Emergency (ER) | payer OTHER, SELFPAY ==
[2023-07-08 17:20] VITALS: BP 176/85; PULSE 59; RESP 16; TEMP 36.8; O2SAT 98
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
[2023-07-08] MEDS: SILVER SULFADIAZINE 1% CR 50 GM JAR (*BKC) 1 APPLIC TOPICAL (18:28)
== END 2023-07-08 18:38 | disposition home or self-care (01) ==
PROVIDERS: Emergency Provider Nurse Practitioner
DX: T22.211A Burn of second degree of right forearm, initial encounter (principal); X15.8XXA Contact with other hot household appliances, initial encounter; I10 Essential (primary) hypertension
CPT/HCPCS: 99213; A9270; G0463

== ENCOUNTER 2024-01-06 08:44 | Emergency (ER) | payer OTHER, SELFPAY ==
--- NOTE | 2024-01-06 08:48 | ED.GENADULT ---
HPI - General Adult General Chief complaint: Unspecified Stated complaint: medication renewal Time Seen by Provider: 01/06/24 09:06 Mode of arrival: ambulatory Limitations: no limitations History of Present Illness HPI narrative: 63-year-old female presents concern for medication refill. She is between doctors, she has a new doctor's appointment in a few weeks. She took her last hypertension medication yesterday. She only needs 1 medication refill. She denies any concerns or symptoms. MD complaint: Medication refill Related Data Home Medications Medication Instructions Recorded Confirmed losartan 50 mg-hydrochlorothiazide 1 tablet PO DAILY 01/06/24 01/06/24 12.5 mg tablet Allergies Allergy/AdvReac Type Severity Reaction Status Date / Time No Known Allergies Allergy Verified 01/06/24 09:07 Review of Systems Review of Systems: CONSTITUTIONAL: Denies malaise, chills, sweats, or fever. CARDIOVASCULAR: Denies chest pain, palpitations, or edema. RESPIRATORY: Denies cough or dyspnea. NEUROLOGIC: Denies headache. All systems reviewed & are unremarkable except as noted in HPI and below PMFSH Past Medical History Medical History History of ankle fracture (~1988) Was in cast for 3 months HTN (hypertension) Family History Family History Grandparent Diabetes mellitus Family history of lung cancer Family history of malignant neoplasm of breast Father Cerebrovascular accident Social History Social History Smoking status: Never smoker Alcohol intake: current Lack of Transportation: No Lack of Food: Never True Current Housing: I Have Housing Concerned About Future Housing: No Difficulty Paying Gas/Electric Bills: No Difficulty Paying for Meds: No Currently Unemployed: No Education: High School Diploma/GED Difficulty w/ Childcare or Family Care: No Comments At time of signature, agree with nursing past medical, surgical, social and family history. There is no relevant family history pertinent to the presenting complaint Exam Narrative: GENERAL: Well-appearing, well-nourished, and in no acute distress. HEAD: Normocephalic, atraumatic. EYES: PERRLA, sclera clear ENT: Nares clear. Mucous membranes moist. NECK: Supple. CHEST: No respiratory distress. Clear to auscultation. No bony deformities, no asymmetry. Speaks in full sentences. HEART: Regular rate and rhythm. No murmur heard. Normal peripheral pulses. SKIN: Warm, dry, no visible rash. NEURO: Alert and oriented x3. PSYCH: Normal mood and affect Course Course Emergency Course: Patient is aware of diagnosis, understands and agrees to treatment plan. Anticipatory guidance given. Patient agrees to follow-up as directed and is aware of reasons to seek care at the emergency department. Portions of this record may have been created with voice recognition software Level of Care: Express Care Visit Vital Signs Vital signs: Reviewed. Medical Decision Making MDM Narrative Medical decision making narrative: The patient was evaluated by myself in the emergency department. History is obtained from patient who is an independent historian and physical exam was performed.? Available medical records were reviewed at this time. ? Exam findings and imaging show no acute concerns or changes; patient is non-toxic appearing and is in no distress. Patient is appropriate for outpatient treatment and follow-up. ? I have evaluated and discussed social determinants of health with the patient that could potentially impact subsequent diagnosis and treatment plans. ? Differential diagnosis and treatment plan were discussed with the patient. Patient agrees with discussion and after shared medical decision making agrees with plan of care. All questions were answered to the patient'
[2024-01-06 09:02] VITALS: BP 152/69; PULSE 54; RESP 16; TEMP 36.2; O2SAT 99
== END 2024-01-06 09:13 | disposition home or self-care (01) ==
PROVIDERS: Emergency Provider Nurse Practitioner
DX: Z76.0 Encounter for issue of repeat prescription (principal); I10 Essential (primary) hypertension
CPT/HCPCS: 99211; G0463

== ENCOUNTER 2024-03-21 12:24 | Outpatient (CLI) | payer OTHER, SELFPAY ==
--- NOTE | ~2024-03-21 | MM_ITS ---
EXAMINATION: MM screening [facility]ro [facility] BI w chanel HISTORY: Screening TECHNIQUE: Craniocaudal and mediolateral oblique 3-D tomosynthesis images were obtained and synthetic 2-D images were generated. CAD analysis was submitted and interpreted. COMPARISON: Comparison to multiple prior studies sequentially, with oldest reviewed study dated 04/23. BREAST PARENCHYMAL COMPOSITION: Not Dense: The breasts are almost entirely fatty. FINDINGS: There is no evidence of suspicious mass, calcification, or architectural distortion to sugg est malignancy in either breast. There has been no suspicious interval change. IMPRESSION: 1. No mammographic evidence of malignancy. 2. Recommend routine screening mammography in one year. BI-RADS Category 1: Negative Reviewed, dictated and finalized at location B.
== END 2024-03-21 12:25 | disposition home or self-care (01) ==
LOC: CHSIMG 12:27
PROVIDERS: PCP Nurse Practitioner Family; Visit Provider Nurse Practitioner Family
DX: Z12.31 Encounter for screening mammogram for malignant neoplasm of breast (principal)
CPT/HCPCS: 77063; 77067

== ENCOUNTER 2024-10-10 10:05 | Outpatient (CLI) | payer BC, SELFPAY ==
--- NOTE | ~2024-10-10 | US_ITS ---
Limited Abdominal Sonogram: Real-time sonographic imaging of the right upper quadrant was performed. Clinical History: Right upper quadrant pain Findings: The liver appears minimally echogenic with no evidence of mass lesion or bile duct dilatat ion. Liver measures 17.3 cm in length. Main portal vein demonstrates normal direction of flow. The ga llbladder is well distended, and appears normal with no evidence of gallstone or wall thickening. The common bile duct measures 3 mm. The visualized pancreas, aorta, and IVC are unremarkable. Impression: Hepatomegaly with probable mild fatty infiltration. Reviewed, dictated and finalized at location . Impression: Hepatomegaly with probable mild fatty infiltration.
--- OUTSIDE RECORDS SUMMARY | 2024-10-10 10:46 | XMS_ITS | Data Portability ---
Author Organization [facility] [place] Address [address] [place] [address] Care Team Providers Care [employer] Certified Network Associate Name Role Phone ELBA ESTRELLA Primary Care Provider Assessment Encounter Date Assessment Date Assessment LastModified by Organization Details LastModified Time 09/08/2022 09/08/2022 Annual gynecological exam performed. Patient will come back in a year unless there are new symptoms. farida Not available 09/08/2022 16:00:07 Plan of Treatment Reminders Order Date Submit Date Provider Last Modified By Organization Details Last Modified Time Details Appointments None recorded . Lab urinalys is, dipstick 2022 023 [facility], [address], [place], [address], 12:28:32 urinalys is, dipstick [facility], [address], [place], [address], 10:53:00 Referral None recorded . Procedures None recorded . Surgeries None recorded . Imaging DEXA, axial skeleton + vertebra l fracture assessme nt 2022 023 farida [facility], [address], [place] [address], [place], [address], 15:56:06 Medication Orders None recorded . Patient TargetsNo targets recorded. Patient InstructionsNo instructions recorded. Reason for Referral None Reported. Results Created Date Observation Date Name Description Value Unit Range Abnormal Flag Note LastModifiedBy Organization Detail LastModifiedTime 09/08/1909/08/2022 VAGIN ITIS/ VAGIN OSIS, DNA PROBE rosa maria sp. detection, direct probe Negati ve negati ve Not Available [facility] (Lab) [address] [place], [address], 09/13/2022 07:06:46 09/08/1909/08/2022 VAGIN ITIS/ VAGIN OSIS, DNA PROBE gardnerella vag. detection, direct probe Negati ve negati ve Not Available [facility] (Lab) [address] [place], [address], 09/13/2022 07:06:46 09/08/1909/08/2022 VAGIN ITIS/ VAGIN OSIS, DNA PROBE trichomonas vag. detection, direct probe Negati ve negati ve Not Available [facility] (Lab) [address] [place], [address], 09/13/2022 07:06:46 09/08/1909/08/2022 CULTU RE: URINE result report SEE RESULT S BELOW Test: Cultu re: Urine Speci men Sourc e: Urine Voide d Speci men Type: Urine Speci men Date: 2022 4:12 PM Resul t Date: 2022 6:20 AM Resul t Statu s: Final resul t Abnor mal: No Resul ting Lab: [facility] [address] [facility] [address] Tel: CULTU RE ----- ----- ----- --- No growt h in 1 day (dete ction level of 10,00 0 colon ies / ml.) Not Available [facility] (Lab) [address] [place], [address], 09/13/2022 07:06:47 09/08/19 23 09/08/2022 IMAGE GUIDE D PAP AND HPV REGAR DLESS image guided Pap, HPV regardless of Pap result SEE RESULT S BELOW CASE REPOR T: Cytol ogy Gynec ologi kyle Repor t Case: [id number] Autho isaias singh Provi michell: Magdalene Giang, AUDIO VISUAL DIRECTOR Gustavo cted: 09/08 1612 Order ing Locat ion: [place] [facility] Recei bridger: 09/09 0209 First Scree n: Strut z, Willi am, CT Speci men: Scree janet Pap - Image d, Cervi x STATE MENT OF ADEQU ACY: Satis facto ry for evalu ation Trans forma tion zone compo nent prese nt FINAL DIAGN OSIS: Negat keri for Intra epith elial Lesio n or Augusto ramirez (NIL) . Elect manuelnydia forte suhail d by Gina heredia, Jamie andrade, CT on 2022 at 6:02 AM ----- ----- ----- ----- ----- ----- ----- ----- ----- ----- ----- ----- ----- ----- ----- ----- ----- ---- HPV RESUL TS: HPV mRNA E6/E7 : No HPV mRNA Detec lan NOTE: This high risk HPV mRNA assay detec ts fourt een high- risk HPV types (16, 18, 31, 33, 35, 39, 45, 51, 52, 56, 58, 59, 66, 68) witho ut diffe renti ation . COMME NT: Note: This speci men was revie wed by a Cytot echno logis t and/o r Patho logis t (as indic ated in this repor t) after evalu ation using the Thinp rep Imagi ng Syste m. CLINI KYLE INFOR MATIO N: Menst rual Statu s: LMP (if appli cable ): Clini kyle Histo ry/Pr eviou s Pap: Type of Neopl thomas (if appli cable ): Signi fican t Clini kyle Findi ngs: Other Histo ry: Hormo cedric (if appli cable ): PAP EDUCA SHERRIE L NOTE: The Pap Test is a scree janet test with an inher ent false negat keri rate. Liqui d-bas ed sampl ing may decre ase, but will not elimi sherrie, false negat keri resul ts. A negat keri resul t does not precl ude the prese nce and/o r devel opmen t of disea se, since the prese nce of abnor mal cells in the sampl e depen ds on the locat ion of the lesio n and sampl ing techn ique. Claire nued regul ar scree janet is the best metho d of cance r preve ntion . If repor lan cytol ogic findi ng do not corre late with physi kyle and/o r histo rical findi ngs, furth er inves tigat ion is recom oniel d, as clini jaxon warra nted. Not Available [facility] (Lab) [address], [place], [address], 09/13/2022 07:06:47 06/01/20 23 06/01/2023 urina lysis , dipst ick Leukocytes Negati ve Not Available [place] [address], [place], [address], 06/01/2023 10:49:54 06/01/20 23 06/01/2023 urina lysis , dipst ick Nitrite Negati ve Not Available [place] [address], [place], [address], 06/01/2023 10:49:54 06/01/20 23 06/01/2023 urina lysis , dipst ick Urobilinogen Negati ve Not Available [place] [address], [place], [address], 06/01/2023 10:49:54 06/01/20 23 06/01/2023 urina lysis , dipst ick Protein Negati ve Not Available [place] [address], [place], [address], 06/01/2023 10:49:54 06/01/20 23 06/01/2023 urina lysis , dipst ick pH 5 Not Available [place] [address], [place], [address], 06/01/2023 10:49:54 06/01/20 23 06/01/2023 urina lysis , dipst ick Specific [place] 1.015 Not Available [facility] [address], [place], [address], 06/01/2023 10:49:54 06/01/20 23 06/01/2023 urina lysis , dipst ick Ketone Negati ve Not Available [place] [address], [place], [address], 06/01/2023 10:49:54 06/01/20 23 06/01/2023 urina lysis , dipst ick Bilirubin Negati ve Not Available [place] [address], [place], [address], 06/01/2023 10:49:54 06/01/20 23 06/01/2023 urina lysis , dipst ick Glucose Negati ve Not Available [place] [address], [place], [address], 06/01/2023 10:49:54 06/01/20 23 06/01/2023 urina lysis , dipst ick Appearance Clear Not Available [facility] olivia [address], [place], [address], 06/01/2023 10:49:54 06/01/20 23 06/01/2023 urina lysis , dipst ick Color Yellow Not Available [place] [address], [place], [address], 06/01/2023 10:49:54 06/09/2006/09/2023 CULTU RE: URINE result report SEE RESULT S BELOW Test: Cultu re: Urine Speci men Sourc e: Urine Voide d Speci men Type: Urine Speci men Date: 06/09 3:08 PM Resul t Date: 06/11 5:32 AM Resul t Statu s: Final resul t Abnor mal: No Resul ting Lab: [facility] [address] [facility] [address] Tel: CULTU RE ----- ----- ----- --- No growt h in 1 day (dete ction level of 10,00 0 colon ies / ml.) Not Available [facility] (Lab) [address] [facility], [place], [address], 06/11/2023 06:36:08 06/09/20 23 06/09/2023 urina lysis , dipst ick Leukocytes neg Not Available [facility] [address], [place], [address], 06/09/2023 12:27:58 06/09/20 23 06/09/2023 urina lysis , dipst ick Nitrite neg Not Available [place] [address], [place], [address], 06/09/2023 12:27:58 06/09/20 23 06/09/2023 urina lysis , dipst ick Urobilinogen neg Not Available [facility] wanda [address], [place], [address], 06/09/2023 12:27:58 06/09/20 23 06/09/2023 urina lysis , dipst ick Protein trace Not Available [place] [address], [place], [address], 06/09/2023 12:27:58 06/09/20 23 06/09/2023 urina lysis , dipst ick pH 5 Not Available [place] [address], [place], [address], 06/09/2023 12:27:58 06/09/2006/09/2023 urina lysis , dipst ick Specific [place] 1.020 Not Available Lila deleon [address], [place], [address], 06/09/2023 12:27:58 06/09/2006/09/2023 urina lysis , dipst ick Ketone neg Not Available [place] [address], [place], [address], 06/09/2023 12:27:58 06/09/2006/09/2023 urina lysis , dipst ick Bilirubin neg Not Available Kallie cantu [address], [place], [address], 06/09/2023 12:27:58 06/09/2006/09/2023 urina lysis , dipst ick Glucose neg Not Available [place] [address], [place], [address], 06/09/2023 12:27:58 06/09/2006/09/2023 urina lysis , dipst ick Appearance clear Not Available Jose baker [address], [place], [address], 06/09/2023 12:27:58 06/09/2006/09/2023 urina lysis , dipst ick Color yellow Not Available [place] [address], [place], [address], 06/09/2023 12:27:58 Result Notes None recorded. Problems Name Problem SNOMED Code Status Onset Date Resolution Date Notes Provider Name and Address Organization Details Recorded Time Screening for malignant neoplasm of cervix Active 2012 Pap Smear;Prac janette ID: [id number] Not Available [facility] 0 21:17:06 Screening for malignant neoplasm of rectum Active 2012 Screening for malignant neoplasms of the rectum;Pra ctice ID: 0001 Not Available [facility] 0 21:17:06 Adult health examinati on Active 2014 Routine general medical examinatio n at a health care facility;P ractice ID: 0001 Not Available [facility] 0 21:17:06 Specializ ed medical examinati on Active 2014 Routine gynecologi kyle examinatio n;Practice ID: 0001 Not Available [facility] 0 21:17:[address] Concept Active 2016 Encntr for general adult medical exam w/o abnormal findings;P ractice ID: 0001 [facility] Available [facility] Concept Active 2016 Encntr for hop trainer exam (general) (routine) w/o abn findings;P ractice ID: 0001 Not Available [facility] 0 21:17:06 Left lower quadrant pain 787151997 Active 2012 Abdominal pain, left lower quadrant;R ecorded Elsewhere: No Locatio n: [facility] rce: EHR Chroni c: N Practice ID: 0001 Billa ble Time: 10:00:00 AM Not Available [facility] 0 21:17:06 Hypertrop hy of uterus 307207429 Active 2018 Hypertroph y of uterus;Rec orded Elsewhere: No Locatio n: [facility] rce: EHR Chroni c: N Practice ID: 0001 Billa ble Time: 04:00:00 PM Not Available [facility] 0 21:17:06 Pelvic and perineal pain 852433108 Active 2018 Pelvic and perineal pain;Recor ded Elsewhere: No Locatio n: [facility] rce: EHR Chroni c: N Practice ID: 0001 Billa ble Time: 04:00:00 PM Not Available [facility] 0 21:17:07 Blood leukocyte number above reference range 926588619 Active 2018 Elevated white blood cell count, unspecifie d;Recorded Elsewhere: No Locatio n: [facility] rce: EHR Chroni c: N Practice ID: 0001 Billa ble Time: 03:00:00 PM Not Available [facility] 0 21:17:07 Radiology result abnormal 846151639 Active 2010 Nonspecifi c abnormal findings on radiologic al and other examinatio n of genitourin simon organs;Rec orded Elsewhere: No Locatio n: [facility] rce: EHR Chroni c: N Practice ID: 0001 Billa ble Time: 03:30:00 PM Not Available [facility] 0 21:17:07 test negative 779711226 Active 2010 Negative Test;Pract ice ID: 0001 Not Available [facility] 0 21:17:08 Dysfuncti onal uterine bleeding Active 2010 DUB;Practi ce ID: 0001 Not Available [facility] 0 21:17:08 Pre-surge ry evaluatio n Active 2010 Pre-operat keri examinatio n, unspecifie d;Practice ID: 0001 Not Available [facility] 0 21:17:08 Ill-defin ed intestina l infection Active 2012 No Show Fee;Practi ce ID: 0001 Not Available [facility] 0 21:17:08 Problem Notes None recorded. Procedures Surgical History Date Name Laterality Status Provider Name and Address Organization Details Recorded Time 3 Date of Last Mammogram completed [facility] 09/08/2022 16:00:59 9 Date of Last Pap Smear completed [facility] 09/08/2022 16:03:52 7 completed [facility] 09/08/2022 16:00:59 Caesarean Section completed [facility] 09/08/2022 16:01:12 Imaging Results None recorded. Procedure Notes None recorded. Medical Equipment None Reported. Allergies No known drug allergies Medications Name Sig Start Date Stop Date Status Note LastModified by Organization Details LastModified Time Macrobid 100 mg capsule take 1 capsule by oral route every 12 hours with food 12/27 completed Prescrib ed Elsewher e: Yes Loca tion: [facility] odify By: arya puente DateTime : 04/04/20 11 10:21:22 AM Not Available Not Available Not Available triamcino lone acetonide 0.025 % topical cream APPLY TO AFFECTED AREA(S) TWICE DAILY 09/08 completed Not Available Not Available Not Available ciproflox acin 0.3 % eye drops PUT 1-2 DRPS IN AFFECTED EYE(S) EVERY 2HR UP TO 8 TIMES/DA Y X2DAYS THEN 4 TIMES/DA Y X5DAYS 09/08 completed Not Available Not Available Not Available Cipro 500 mg tablet take 1 tablet (500MG) by oral route every 12 hours 04/30 completed Prescrib ed Elsewher e: No Locat ion: [facility] odify By: cmschult z Rajani ter DateTime : 12/28/19 13 10:00:00 AM Not Available Not Available Not Available levofloxa saray 750 mg tablet TAKE 1 TABLET ORALLY DAILY FOR 7 DAYS 09/08 completed Not Available Not Available Not Available losartan 50 mg-hydroc hlorothia zide 12.5 mg tablet TAKE 1 TABLET BY MOUTH EVERY DAY active Not Available Not Available No t Available Zaida Aspirin 325 mg tablet take 1 tablet by oral route every day active Prescrib ed Elsewher e: Yes Loca tion: [facility] odify By: arya puente DateTime : 12/28/19 13 10:00:00 AM Not Available Not Available Not Available tobramyci n 0.3 %-dexamet hasone 0.1 % eye drops,evaristo pension INSTILL ONE DROP INTO LEFT EYE FOUR TIMES DAILY FOR 7 DAYS 09/08 completed Not Available Not Available Not Available Children' s Motrin 100 mg/5 mL oral suspensio n take 10 millilit er by oral route every 6 hours as needed with food 09/08 completed Prescrib ed Elsewher e: Yes Loca tion: [facility] odify By: manoj hernandez DateTime : 04/04/20 11 10:21:22 AM Not Available Not Available Not Available losartan 09/08 completed Not Available Not Available Not Available BinaxNOW COVID-19 Ag Self Test kit active Not Available Not Available Not Available Vitals Date Recorded Body height Body mass index (BMI) Body weight Systolic blood pressure Diastolic blood pressure Provider Name and Address Organization Details Last Updated DateTime 09/08/2022 160.02 cm 36.6 kg/m2 77526.18 g 120 mm[Hg] 71 mm[Hg] Brina Cunningham [facility] 3 16:00:35 Date Recorded Body height Body mass index (BMI) Body weight Systolic blood pressure Diastolic blood pressure Provider Name and Address Organization Details Last Updated DateTime 06/01/2023 160.02 cm 39 kg/m2 64101.32 g 138 mm[Hg] 89 mm[Hg] Milagro Hunter [facility] 3 10:39:18 Date Recorded Body height Body mass index (BMI) Body weight Systolic blood pressure Diastolic blood pressure Provider Name and Address Organization Details Last Updated DateTime 06/09/2023 160.02 cm 38.8 kg/m2 39265.01 g 137 mm[Hg] 87 mm[Hg] Denise Ferreira [facility] 3 12:09:21 Social History Question Answer Notes LastModified by Organizat ion Details LastModified Time Tobacco Smoking Status Never Smoker Brina Cunningham [facility], [facility] 09/08/2022 16:05:40 What Is Your Level Of Alcohol Consumption? None Information not available 09/08/2022 Are You Blind Or Do You Have Difficulty Seeing? No Information n ot available 09/08/2022 What Is Your Level Of Caffeine Consumption? Moderate Information not available 09/08/2022 In The 14 Days Before Symptom Onset, Have You Had Close Contact With A Laboratory-confirm ed COVID-19 While That Case Was Ill? No Information n ot available 09/08/2022 In The 14 Days Before Symptom Onset, Have You Had Close Contact With A Person Who Is Under Investigation For COVID-19 While That Person Was Ill? No Information not available 09/08/2022 Have You Been To An Area Known To Be High Risk For COVID-19? No Information not available 09/08/2022 Are You Deaf Or Do You Have Serious Difficulty Hearing? No Information not available 09/08/2022 What Type Of Diet Are You Following? REGULAR Information n ot available 09/08/2022 What Is The Highest Grade Or Level Of School You Have Completed Or The Highest Degree You Have Received? 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 No Information not available 09/08/2022 Do You Use Protection During Sex? No Information not available 09/08/2022 Do You Use Your Seat Belt Or Car Seat Routinely? Yes Information not available 09/08/2022 Do You Have Smoke And Carbon Monoxide Detectors In Your Home? Yes Information not available 09/08/2022 How Much Tobacco Do You Smoke? No Information not available 09/08/2022 Do You Feel Stressed (tense, Restless, Nervous, Or Anxious, Or Unable To Sleep At Night)? [id number] Information not available 09/08/2022 Do You Use Any Illicit Or Recreational Drugs? No Information not available 09/08/2022 Do You Use Sunscreen Routinely? Yes Information not available 09/08/2022 Have You Used IV Drugs? No Information not available 09/08/2022 Sex: Unknown Functional Status Question Answer Note LastModified by Organizat ion Details LastModified Time Do you have difficulty walking or climbing stairs? No Information not available 09/08/2022 Are you able to walk? YESWOREST Information not available 09/08/2022 Are you able to care for yourself? Yes Information not available 09/08/2022 Do you have difficulty dressing or bathing? No Information not available 09/08/2022 What is your exercise level? Moderate Information not available 09/08/2022 Mental Status None recorded. Family History Relationship Description Onset Age of this Age Resolved Age Notes LastModified by Organization Details LastModified Time Paternal Grandmother Malignant tumor of breast vschroedter Not available 08/24 16:00:52 Notes:Paternal grandfather: Cancer, lung Paternal grandmother: Cancer, breast Medical History Condition Response Allergies (Food, seasonal, environmental ) N Other N Breast Cancer N Drug/Latex Allergies/Reactions N Blood Transfusion N Dermatologic Disorders N Lung Disease N Defects or Inherited Disease N Breast Problem N Gestational Diabetes N Hematologic disorders N Anesthesia Complications N History of STI N Deep Vein Thrombosis N Polycystic ovary syndrome N Anxiety Disorder N Autoimmune disease N Arthritis N Infertility N Polyps N Acid Reflux (GERD) N History of abnormal pap N Cancer N Stroke N Varicosities N Neurologic/Epilepsy N Endometriosis N High Cholesterol N Headaches N Fibromyalgia N Kidney Disease N Heart Problems N Kidney or Bladder Problems N Thyroid Problems N GI Problems N Eating Disorder N Anemia N Art (IVF or FET) N Psychiatric Illness N Ovarian Cancer N Diabetes N Pulmonary (TB, Asthma) N Hepatitis/Liver Disease N No Past Medical History N Eczema N Urinary Tract Infection N Abuse/Domestic Violence N Asthma N Trauma/Violence N Depression/ depression N Heart Disease N Pre-Eclampsia N Hypertension Y Osteoporosis N Thrombophilias N Gynecological History Statement/Question Response Date of Last Mammogram 08/11/2022 N On BCP's at Conception? N STIs/STDs N HPV Vaccine N Current Control Method Menopause Age at First Child 28 Sexually Active? Y Age of first menstrual cycle 14 Date of Last Pap Smear 04/30/2019 Sexual Problems? N LMP Unknown 2017 N Obstetrics History GPAL:G 2 P 0 0 1 1 Type Value Spontaneous 1 Living 1 Total 2 Past Encounters Encounter ID Performer Location Encounter Start Date Encounter Closed Date Diagnosis/Indication Diagnosis SNOMED-CT Code Diagnosis ICD10 Code Diagnosis Note [id number] SHARIF Skinner [place] [address] [address] 09/08/2022 15:42:11 09/08/2022 17:53:44 Screening for osteoporosis 693512093 Z13.820 Gynecologi c examination 13207375 Z01.419 Take Calcium with Vitamin D 12-1500mg daily. Do monthly self breast exams. It is advised to get annual flu shot in the fall and she could obtain at [facility] or [facility] care clinic. If you haven't received the Tdap vaccine in the last 10 years you should obtain one as well. Have mammogram yearly, bone density every 2-3 years and colonoscop y every 5-10 years depending on findings and history. Engage in daily exercise of low impact aerobic exercise 45-60 minutes 4-5 times weekly. Avoid tobacco and illicit drugs as well as using moderation with alcohol intake less than 1-2 8 oz beverages daily. This lifestyle behavior pattern will lead to less health conditions and longer life span. If BMI greater than 25 weight watchers or dietary consult advised. Questions have been answered. Patient appears to understand instructio ns, but if you have any further questions call or respond to this email WWEPostmen opausalNo hx of abnormal papsLast pap 2019 - normalPap done todaySTI testing declinedMa mmogram UTDcolonos copy UTD per patientDex a order given to patientVul jonas lesion noted, left labia majora. See PE. Some irritation at this site. Recommende d vulvar biopsy. She will schedule to RTC for this.Urine cx sent. Vaginitis panel sent per request. Lesion of vulva 07332592 6 N90.89 [id number] SHARIF Skinner [place] [address] [address] 06/01/2023 10:30:31 06/01/2023 11:04:49 Urinary symptoms 955922087 R39.9 UA - normalcx sentno urinary symptoms todayDecre ase caffeine/c arbonation intakeNo vulvar symptoms today. We agreed to f/u in 1-2 weeks for vulvar check/poss ible biopsy Patient is to contact office or go to nearest ED/Urgent care if fever >/= 100.1, pain, excessive bleeding, unusual drainage or swelling in area of concern; or experienci ng worsening sx's or new onset of concerning sx's. Understand ing verbalized . All questions answered to patient satisfacti on. Time spent in visit is a total of 20 mins with at least 50% of visit consisting of counseling and review of plan of care. Lesion of vulva 01204579 6 N90.89 [id number] SHARIF Skinner [place] [address] [address] 06/09/2023 12:02:56 06/13/2023 12:43:04 Urinary symptoms 023851056 R39.9 Lesion of vulva 29810947 6 N90.89 Again recommende d vulvar biopsy, r/b discussedd eclined today, she would like RTCvulvar care guidelines discussedR TC for biopsy Time spent in visit is a total of 15 mins with at least 50% of visit consisting of counseling and review of plan of care. Health Concerns Section Related Observation LastModified by Organization Detai ls LastModified Time None Recorded Concern Status LastModified by Organization Details LastModified Time None Recorded Advance Directives Directive None Recorded Payers Encounter Date Sequence Insurance Name Policy Number Policy Quigley Covered Member ID Quigley Member ID Guarantor Name 09/08/2022 1 [employer] [id number] Carter Pereira Ordoñez [id number] Carter Parker Ordoñez 06/01/2023 1 [employer] [id number] Carter Pereira Ordoñez [id number] Carter Parker Ordoñez 06/09/2023 1 [employer] [id number] Carter Pereira Ordoñez [id number] Carter Parker [employer] Notes Date Note Type Note Provider Name and Address Organization Details Recorded Time 09/08/2022 text/html Annual Vtc Technician Post-MenopausalReport ed bypatient.Menopausal Symptoms:no menopausal symptoms; normal vaginal lubrication Vaginal Bleeding:history of menopause having occurred; no history of post menopausal bleeding Urinary Symptoms:no hematuria; no incontinence; no nocturia; no urinary frequency Vulva:no genital lesion; no vulvar atrophy Vagina:normal vaginal discharge; no vaginal atrophy Breast:no breast lump; no nipple discharge; no breast pain Sexual Complaints:no sexual complaints Psychological Symptoms:no depression; no anxiety Preventive Measures:encourage regular mammograms starting age 40; encourage self breast examination; encourage regular exercise; encourage no tobacco use; mammogram performed within the past year; history of recent colonoscopy; needs to schedule bone densityNotes:Went to ER a few weeks ago for back pain, found to have UTI. Completed treatment course, symptoms have resolved. No current symptoms - requesting repeat urine cx.Vaginal itching last week, no current symptoms. No d/c, itching, or odors. Requesting testing for a yeast infection. SHARIF Skinner [address], [place], [address], [facility] 09/08/2022 17:47:15 06/01/2023 text/html 63yopresents for evaluation of urinary symptomssymptoms started yesterday, slight burning/pressure with urination. These symptoms have since resolved.Did drink an excessive amount of soda/carbonation/swee t tea yesterdayneg flank painsneg pelvic painneg n/v/fneg flu-like symptomsdenies any vaginal itching/odors, irritationwas seen for [employer] 08/2022, noted to have a vulvar lesion that was recommended to biopsy SHARIF Skinner [address], [place], [address], [facility] 06/01/2023 11:02:20 06/09/2023 text/html 63yopresents for f/uvulvar lesion noted at [employer] 3biopsy recommended at that timeher today for vulvar checkslight itching on and off at this areaneg d/c, odorsneg flank painsneg n/v/f SHARIF Skinner [address], [place], [address], [facility] 06/12/2023 15:20:07 OBGyn Episode Ob Episode Information Episode Created Date Number of Fetuses Patient Bloodtype Patient rh Status Prepregnancy Weight lbs Domestic Partner Domestic Partner Phone Father Name Spar Machine Operator Status 09/08/19 23 1 CLOSED Fetus Data First Name Last Name Admitted to NICU Weight (g) Sex Living Outcome Pediatric Complications Fetus ID Race Codes Race Delivery Type 4535.92 F Full Term [id number] Primary Daquan Calculation Initial Daquan Date Initial Exam Date Initial Exam Provider Initial Ultrasound Date Last Menstrual Period Date Ultra Sound Weeks Gestation 0 Eighteen To Twenty Week Daquan Update Ultra Sound Date Fundal Height At Umbil Quickening Date Ultra Sound Latest Weeks Gestation Final Daquan Confirmed By Final Daquan Confirmed Date Final Daquan Date Ultra Sound Latest Days Gestation 0 0 Menstrual History Last Menstrual Date Menses Monthly On Bcp Conception Prior Menses Frequency Hcg Plus Date Menarche Onset Age Delivery Information Delivery Date Delivery Type Labor Anesthesia Weeks Gestation Incision Type Labor Labor Length Hrs Delivered By Post Complications Tubal Sterilization Discharge Date Comments 2 Discharge Information Feeding Method Contraceptive Method Maternal HG B and HCT Levels
--- OUTSIDE RECORDS SUMMARY | 2024-10-10 10:46 | XMS_ITS | Clinical Summary ---
Author Organization [facility] Address [address] [place] [address] Care Team Providers Care Sports Clerk Name Role Phone Unavailable Primary Care Provider Unavailabl e Social History Tobacco Use Types Packs/Day Years Used Date Smoking Tobacco: Never Assessed Comments Unknown Sex and Gender Information Value Date Recorded Sex Assigned at Not on file Legal Sex Female 11:13 PM CDT Gender Identity Not on file Sexual Orientation Not on file Plan of Treatment Health Maintenance Due Date Last Done Comments DEXA Bone Density 1960 Hepatitis C Virus (HCV) Screening 1958 TdaP Immunization 1958 Pap Smear 1979 Cervical Cancer Screening (CCS) 1988 HPV/Cotest 1988 Colonoscopy 2003 Colorectal Cancer Screening 2003 Cologuard 2008 Immunochemical Fecal Occult Blood 2008 Mammogram 2008 Pneumococcal Immunization (5 0+ years) (1 of 1 - PCV) 2008 Zoster Immunization (1 of 2) 2008 Influenza Immunization (#1) 2024 SARS-COV-2 Immunization (25 season) 2024 Respiratory Syncytial Virus (RSV) Immunization (Adult) (1 - 1-dose 75+ series) 2033 Hepatitis B Immunization Aged Out No longer eligible based on patient's age to complete this topic Meningococcal Immunization (ACWY) Aged Out No longer eligible based on patient's age to complete this topic Rotavirus Immunization Aged Out No lo nger eligible based on patient's age to complete this topic Insurance [employer] Member Subscriber Plan / Payer (Ef fective for All Dates) Name:Makenzie Ordoñez Member ID:[id number] Relation to Subscriber:Self Name:Makenzie Ordoñez Subscriber ID:Not on file Payer ID:PAPER Type:Not on file
--- OUTSIDE RECORDS SUMMARY | 2024-10-10 10:46 | XMS_ITS | Clinical Summary ---
Author Organization [facility] Address [address] [place] [address] Care Team Providers Care Java Developer Consultant Name Role Phone None, Provider MD Primary Care Provider Unavaila ble Allergies Active Allergy Reactions Criticality Noted Date Comments Penicillins Rash Low 10/26/2021 Medications triamcinolone 0.025 % creamIndications: Allergic dermatitis Apply topically 2 (two) times daily. 80 g 1 2 Active losartan-hydroCHL OROthiazide (HYZAAR) 50-12.5 MG tabletIndications :Primary hypertension TAKE 1 TABLET BY MOUTH EVERY DAY 90 tablet 1 2 Active Elastic Bandages & Supports (AIRCAST SPORT ANKLE BRACE/LEFT) MiscIndications:S prain of posterior talofibular ligament of left ankle, initial encounter 1 Units by Does not apply route daily as needed. 1 each 2 Active Active Problems Problem Noted Date Diagnosed Date Allergic dermatitis 10/26/2021 Primary hypertension 10/26/2021 Immunizations Name Administration Dates Next Due Tdap (Adacel) 08/11/2021 Family History Medical History Relation Comments Diabetes Father Hypertension Father Stroke Father Hypertension Mother Relation Status Comments Father Alive Mother Alive Social History Tobacco Use Types Packs/Day Years Used Date Smoking Tobacco: Never Smokeless Tobacco: Never Tobacco Cessation:Counseling Given: No Alcohol Use Standard Drinks/Week Comments Never 0 (1 standard drink = 0.6 oz pur e alcohol) PHQ-2 Answer Date Recorded PHQ-2 Score - If the patient scores above 3, please move on to questions 3-9 0 06/07/2022 Comments No Sex and Gender Information Value Date Recorded Sex Assigned at Not on file Legal Sex Female 7:40 PM CDT Gender Identity Female 10/26/2021 9:33 AM CDT Sexual Orientation Straight 10/26/2021 9: 33 AM CDT Last Filed Vital Signs Vital Sign Reading Time Taken Comments Blood Pressure 157/90 06/15/2022 11:29 AM EMBLEM DRAWER IN Pulse 57 06/15/2022 11:21 AM EMBLEM DRAWER IN Temperature 36 C (96.8 F) 06/15/2022 11:21 AM EMBLEM DRAWER IN Respiratory Rate 16 06/15/2022 11:21 AM EMBLEM DRAWER IN Oxygen Saturation 98% 06/15/2022 11:21 AM EMBLEM DRAWER IN Inhaled Oxygen Concentration - - Weight 88.2 kg (194 lb 6.4 oz) 06/15/2022 11:21 AM EMBLEM DRAWER IN Height 157.5 cm (5' 2 ) 06/15/2022 11:21 AM EMBLEM DRAWER IN Body Mass Index 35.56 06/15/2022 11:21 AM EMBLEM DRAWER IN Plan of Treatment Health Maintenance Due Date Last Done Comments Hepatitis C 1976 Zoster Vaccines (1 of 2) 2008 Dexa Scan (General) 2023 Pneumococcal Vaccine: 65+ Ye ars (1 of 1 - PCV) 2023 COVID-19 Vaccine ( - 2023-2 5 season) 2024 Influenza Adult (#1) 2024 PHQ-2 (Physician [place]) 07/24/2024 Mammogram Screening 08/11/2024 08/11/2022 Colorectal Cancer Screening Colonoscopy (10 Years) 11/02/2026 11/02/2016 DTaP, Tdap and Td Vaccines ( 2 - Td or Tdap) 08/11/2031 08/11/2021 RSV Immunization or 60+ Years (1 - 1-dose 75+ series) 2033 Meningococcal B Vaccine Aged Out No l onger eligible based on patient's age to complete this topic Meningococcal Vaccine Aged Out No sunil hemalatha eligible based on patient's age to complete this topic RSV Immunizations Under 20 Months Aged Out No longer eligible based on patient's age to complete this topic Procedures Procedure Name Priority Date/Time Associated Diagnosis Comments MAMMOGRAM GENERIC (SCAN ORDER) 08/11/2022 COLONOSCOPY Routine 11/02/2016 12:00 AM CDT from Last 3 Months or Most Recently Relevant to Health Maintenance Results * MAMMOGRAM GENERIC (08/11/2022) Anatomical Region Laterality Modality Other 08/11/2022 us Doc [facility] Scanned SCANNING Final Resu lt * Colonoscopy (11/02/2016 12:00 AM CDT) 11/02/2016 11/02/2016 Narrative [facility] TO EPIC CONVERSION - 11/02/2016 12:00 AM CDT Documented hx of procedure Procedure Note Rayf Reid MD - 05/27/2018 Documented hx of procedure us Generic Conversion Md REID GI PROCEDURE ORDERABLES Final Result [facility] TO EPIC CONVERSION from Last 3 Months or Most Recently Relevant to Health Maintenance Insurance [employer] COMP on file Care Teams Java Developer Consultant Relationship Specialty Start Date End Date None, Provider, MD PCP - General UNKNOWN PHYSICIAN SPECIALTY 06/20/23
== END 2024-10-10 10:06 | disposition home or self-care (01) ==
PROVIDERS: PCP Nurse Practitioner Family; Visit Provider Nurse Practitioner Family
DX: R10.11 Right upper quadrant pain (principal); K76.0 Fatty (change of) liver, not elsewhere classified
CPT/HCPCS: 76705